=== PATIENT | female | born 2000 | race Two or more races ===

== ENCOUNTER 2021-04-10 09:22 | Inpatient (IN) | payer OTHER ==
[~2021-04-10] VITALS: Ht 162.6 cm; Wt 96.2 kg
[2021-04-10] MEDS ORDERED: PRENATAL CAPLE1 EAC1 PO (11:18)
== END 2021-04-13 14:02 | disposition home or self-care (01) | DRG 788 ==
LOC: OB/GYN 09:22 → LDR 09:22 → O/R 09:22 → OB/GYN 04-11 13:46
PROVIDERS: ADMIT Obstetrics & Gynecology; ATTEND Obstetrics & Gynecology
PROC: 4A1HXFZ Monitoring of Products of Conception, Cardiac Rhythm, External Approach (ICD-10-PCS; 2021-04-10)
PROC: 10D00Z1 Extraction of Products of Conception, Low, Open Approach (ICD-10-PCS; principal; 2021-04-10 13:30)
DX: O34.211 Maternal care for low transverse scar from previous cesarean delivery (principal); Z37.0 Single live birth; Z3A.38 38 weeks gestation of pregnancy; Z20.822 Contact with and (suspected) exposure to COVID-19